=== PATIENT | male | born 1980 | race Caucasian/White ===

== ENCOUNTER → 2020-10-25 10:30 | Outpatient (CLI) | payer BC, SELFPAY ==
--- NOTE | 2020-10-25 11:30 | MRI_ITS ---
ACR Level 3 findings have been noted. An addendum which confirms receipt of the report will follow. HISTORY: LBP. TECHNIQUE: Multiplanar and multisequence MR images of the lumbar spine. IV Contrast dosage and agent: 20 mL Dotarem. # of images incl. paperwork: 195. COMPARISON: None. FINDINGS: VERTEBRAE: Vertebral body heights maintained. L3 vertebral body hemangioma. ALIGNMENT: No anterior or posterior subluxation. SPINAL CANAL: 1 x 1.3 x 2.4 cm circumscribed, oval, and avidly enhancing T1 isointense and T2 hyperintense intradural extramedullary mass in the spinal canal at the L2 level. Mass severely compresses the cauda equina with markedly severe spinal canal stenosis. No extension of the mass into the neuroforamina. Normal morphology and position of the conus at T12-L1. SOFT TISSUES: Mild posterior subcutaneous edema. INTERVERTEBRAL DISCS: Mild disc bulge with facet arthropathy at L4-5 resulting in mild central canal stenosis and bilateral foraminal narrowing. No significant posterior disc herniation at the other levels. MRI/Spine Lumbar W/WO Contrast IMPRESSION: 2.4 cm intradural extramedullary mass in the spinal canal with severe compression of the cauda equina nerve roots. Leading diagnostic considerations include schwannoma or neurofibroma, with ependymoma or meningioma considered less likely. Mild disc bulge at L4-5. at 1254 Reported and signed by: Earnestine Busch MD Electronically Signed: Earnestine Busch MD at 12:53 EDT Tel , Service support ,
== END ==
DX: M54.5 Low back pain (principal)
CPT/HCPCS: 72158; A9575